=== PATIENT | female | born 1985 | race Two or more races ===

== ENCOUNTER 2017-09-30 21:51 | Emergency (ER) | payer BC ==
[~2017-09-30] VITALS: Ht 162.6 cm; Wt 81.6 kg
--- NOTE | 2017-09-30 22:40 | NUR ---
DR ROBERT GOYAL MD AT [facility] FOR MSE.
[2017-09-30] MEDS ORDERED: HYDROCODONE/APAP 5-325MG TABLET PO ONE (22:45)
--- NOTE | 2017-09-30 22:57 | NUR ---
RADIOLOGY AT BEDSIDE FOR XRAY.
[2017-09-30] MEDS ORDERED: HYDROCODONE/APAP 5-325MG TABLET ONE (22:58)
--- NOTE | 2017-10-01 00:32 | NUR ---
Patient discharged to home in stable conditon. Written and verbal after care instructions given. Patient verbalizes understanding of instructions. Pt ambulated from ER w/ steady gait w/ use of crutches. No distress noted. Pt took all personal belongings.
[2017-10-01 00:34] VITALS: BP 122/76
== END 2017-10-01 00:34 | disposition home or self-care (01) ==
LOC: ER 21:52
DX: S50.02XA Contusion of left elbow, initial encounter (principal); S93.402A Sprain of unspecified ligament of left ankle, initial encounter; W17.89XA Other fall from one level to another, initial encounter; Y93.89 Activity, other specified; Y92.89 Other specified places as the place of occurrence of the external cause; Y99.8 Other external cause status
CPT/HCPCS: 29515; 73080; 73610; 99284; A4663

== ENCOUNTER 2017-10-02 19:37 | Emergency (ER) | payer BC ==
[~2017-10-02] VITALS: Ht 162.6 cm; Wt 85.7 kg
--- NOTE | 2017-10-02 20:10 | NUR ---
PT IN BED POSITIONED FOR COMFORT. PT'S VISITOR AT BEDSIDE. UPON INSPECTION OF EFFECTED EXTREMITY NO UNILATERAL EDEMA WAS NOTED. UPON PALPATION NO UNILATERAL PAIN WAS REPORTED BY PT.
[2017-10-02 20:33] LABS: *AMPHETAMINE, URINE NEGATIVE (NEGATIVE); *BARBITURATE, URINE NEGATIVE (NEGATIVE); *CANNABINOID, URINE NEGATIVE (NEGATIVE); *COCCAINE, URINE NEGATIVE (NEGATIVE); *OPIATE, URINE NEGATIVE (NEGATIVE); *PHENCYCLIDINE SCREEN,URINE NEGATIVE (NEGATIVE)
--- NOTE | 2017-10-02 21:00 | NUR ---
Patient discharged to home in stable conditon. Written and verbal after care instructions given. Patient verbalizes understanding of instructions. Patient able to ambulate unassisted with a steady gait. Patient left with all personal belongings.
[2017-10-02 21:05] VITALS: BP 132/76
== END 2017-10-02 21:00 | disposition home or self-care (01) ==
LOC: ER 19:38
DX: Z48.00 Encounter for change or removal of nonsurgical wound dressing (principal)
CPT/HCPCS: 80307; 99283; A4663

== ENCOUNTER 2017-10-27 04:36 | Emergency (ER) | payer BC ==
[~2017-10-27] VITALS: Ht 160 cm; Wt 90.7 kg
--- NOTE | 2017-10-27 05:40 | NUR ---
TYLENOL 1 GM PO GIVEN
[2017-10-27] MEDS ORDERED: ACETAMINOPHEN ES 500 MG TABLET ONE (05:42)
--- NOTE | 2017-10-27 05:56 | NUR ---
Patient discharged to home in stable conditon. Written and verbal after care instructions given. Patient verbalizes understanding of instructions.
[2017-10-27] MEDS ORDERED: ACETAMINOPHEN ES 500 MG TABLET PO ONE ×2 (06:00)
[2017-10-27 06:02] VITALS: BP 119/7
== END 2017-10-27 06:02 | disposition home or self-care (01) ==
LOC: ER 04:38
DX: J02.0 Streptococcal pharyngitis (principal)
CPT/HCPCS: A4663; A9150

== ENCOUNTER 2017-10-28 20:40 | Emergency (ER) | payer BC ==
[~2017-10-28] VITALS: Ht 160 cm; Wt 90.7 kg
--- NOTE | 2017-10-28 21:18 | NUR ---
Patient discharged to home in stable conditon. Written and verbal after care instructions given. Patient verbalizes understanding of instructions.
== END 2017-10-28 21:31 | disposition home or self-care (01) ==
LOC: ER 20:45
DX: J02.9 Acute pharyngitis, unspecified (principal)
CPT/HCPCS: A4663

== ENCOUNTER 2018-11-28 11:14 | Emergency (ER) | payer BC ==
[~2018-11-28] VITALS: Ht 157.5 cm; Wt 86.2 kg
--- NOTE | 2018-11-28 12:00 | NUR ---
Seen and evaluated by .
[2018-11-28 12:45] VITALS: BP 124/77
== END 2018-11-28 12:45 | disposition home or self-care (01) ==
LOC: ER 11:14
DX: R07.9 Chest pain, unspecified (principal); F15.10 Other stimulant abuse, uncomplicated
CPT/HCPCS: 71045; 93005; A4663

== ENCOUNTER 2019-01-23 05:27 | Emergency (ER) | payer SELFPAY ==
[~2019-01-23] VITALS: Ht 167.6 cm; Wt 81.6 kg
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
--- NOTE | 2019-01-23 05:36 | NUR ---
DR. TOLLIVER AT BEDSIDE FOR MSE.
--- NOTE | 2019-01-23 05:45 | NUR ---
ORDER RECEIVED FOR IBUPROFEN 800MG PO. GIVEN TO PATIENT.
[2019-01-23] MEDS ORDERED: IBUPROFEN 800 MG TABLET ONE (05:49)
--- NOTE | 2019-01-23 06:26 | NUR ---
sugar tong splint applied to right forearm per order from Dr. Carson. CMS intact after application of splint.
--- NOTE | 2019-01-23 06:35 | NUR ---
Patient discharged to home in stable conditon. Written and verbal after care instructions given. Patient verbalizes understanding of instructions. PATIENT LEFT WITH STABLE GAIT.
[2019-01-23 06:36] VITALS: BP 135/78
== END 2019-01-23 06:36 | disposition home or self-care (01) ==
LOC: ER 05:30
DX: S52.501A Unspecified fracture of the lower end of right radius, initial encounter for closed fracture (principal); V43.92XA Unspecified car occupant injured in collision with other type car in traffic accident, initial encounter; Y93.89 Activity, other specified; Y92.89 Other specified places as the place of occurrence of the external cause; Y99.8 Other external cause status
CPT/HCPCS: 73110; 73130; A4663

== ENCOUNTER 2020-11-16 20:37 | Emergency (ER) | payer BC ==
[~2020-11-16] VITALS: Ht 165.1 cm; Wt 63.5 kg
[2020-11-16] MEDS ORDERED: POLY10DR OP (21:19)
[2020-11-16] MEDS ORDERED: PENI500T PO (21:19)
--- NOTE | 2020-11-16 22:11 | NUR ---
Patient discharged to home in stable condition. Written and verbal after care instructions given. Patient verbalizes understanding of instructions. Stressed follow up or return to ER for worsening s/s.
== END 2020-11-16 22:12 | disposition home or self-care (01) ==
LOC: ER 20:37
DX: H10.32 Unspecified acute conjunctivitis, left eye (principal); J02.9 Acute pharyngitis, unspecified
CPT/HCPCS: A4663

== ENCOUNTER 2021-07-14 07:27 | Emergency (ER) | payer BC ==
[~2021-07-14] VITALS: Ht 160 cm; Wt 86.2 kg
[~2021-07-14 07:27] MED LIST: PENI500T PO; POLY10DR OP
--- NOTE | 2021-07-14 07:37 | NUR ---
Patient ambulatory, alert abd orientedx4 with complaints of right upper leg pain 8/10. Denies nausea,vomiting,abdominal pain. Not in distress.
--- NOTE | 2021-07-14 07:45 | NUR ---
MD at bedside, medical screening exam in process.
[2021-07-14] MEDS ORDERED: IBUPROFEN 800 MG TABLET ONE (08:00)
[2021-07-14] MEDS ORDERED: IBUPROFEN 800 MG TABLET PO ONE (08:00)
[2021-07-14 08:26] LABS: *URINE HCG, QUAL NEG (NEGATIVE)
--- NOTE | 2021-07-14 08:30 | NUR ---
Patient out for CT.
[2021-07-14] MEDS ORDERED: IBUP-1957 PO (09:13)
[2021-07-14 09:19] VITALS: BP 125/80
== END 2021-07-14 09:20 | disposition home or self-care (01) ==
LOC: ER 07:27
DX: M54.31 Sciatica, right side (principal); M48.04 Spinal stenosis, thoracic region; F17.200 Nicotine dependence, unspecified, uncomplicated; M51.27 Other intervertebral disc displacement, lumbosacral region
CPT/HCPCS: 72131; 72192; 84703; A4663

== ENCOUNTER 2021-08-22 12:13 | Emergency (ER) | payer BC ==
[~2021-08-22] VITALS: Ht 157.5 cm; Wt 86.2 kg
[~2021-08-22 12:13] MED LIST changes: +IBUP-1957 PO
--- NOTE | 2021-08-22 12:35 | NUR ---
DR JONES AT BEDSIDE FOR EVALUATION.
[2021-08-22] MEDS ORDERED: DEXAMETHASONE SOD PHOSPHATE 10 MG INJ ONE (12:41)
[2021-08-22] MEDS ORDERED: KETOROLAC TROMETHAMINE 15 MG INJ ONE (12:42)
[2021-08-22] MEDS ORDERED: DEXAMETHASONE SOD PHOSPHATE 4 MG INJ IM ONE (12:45)
[2021-08-22] MEDS ORDERED: KETOROLAC TROMETHAMINE 15 MG INJ IM ONE (12:45)
[2021-08-22] MEDS ORDERED: BENZ-13 PO (14:03)
[2021-08-22] MEDS ORDERED: IBUP-1955 PO (14:03)
[2021-08-22 14:59] VITALS: BP 124/64
== END 2021-08-22 15:10 | disposition home or self-care (01) ==
LOC: ER 12:13
DX: J10.1 Influenza due to other identified influenza virus with other respiratory manifestations (principal); R00.0 Tachycardia, unspecified; F15.10 Other stimulant abuse, uncomplicated; Z20.822 Contact with and (suspected) exposure to COVID-19; R03.0 Elevated blood-pressure reading, without diagnosis of hypertension
CPT/HCPCS: 87400; 96372 ×2; 99284; J1100; J1885; U0003; A4663

== ENCOUNTER 2021-12-05 03:16 | Emergency (ER) | payer BC ==
[~2021-12-05] VITALS: Ht 157.5 cm; Wt 86.2 kg
[~2021-12-05 03:16] MED LIST changes: +BENZ-13 PO; +IBUP-1955 PO
[2021-12-05] MEDS ORDERED: IBUPROFEN 600 MG TABLET ONE (03:37)
[2021-12-05] MEDS ORDERED: IBUPROFEN 600 MG TABLET PO ONE (03:45)
[2021-12-05 03:52] LABS: HEMATOCRIT 38.4 % (31.2-41.9); MEAN CORPUSCULAR HEMOGLOBIN 29.5 uug (24.7-32.8); MEAN CORPUSCULAR VOLUME 87.1 fL (75.5-95.3); PLATELET COUNT (AUTO) 381 K/uL (179-408)
[2021-12-05] MEDS ORDERED: OXYC-128 PO (04:05)
[2021-12-05 04:07] LABS: *MONOTEST NEGATIVE (NEGATIVE)
[2021-12-05 04:12] VITALS: BP 139/95
== END 2021-12-05 04:13 | disposition home or self-care (01) ==
LOC: ER 03:21
DX: J03.80 Acute tonsillitis due to other specified organisms (principal); B97.89 Other viral agents as the cause of diseases classified elsewhere; R03.0 Elevated blood-pressure reading, without diagnosis of hypertension
CPT/HCPCS: 36415; 85025; 86308; 86403; 87070; A4663